=== PATIENT | male | born 1990 | race Caucasian/White ===

== ENCOUNTER 2025-04-30 18:11 | Emergency (ER) | payer BC ==
[~2025-04-30] VITALS: Ht 175.3 cm; Wt 118.2 kg
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
[2025-04-30 19:22] VITALS: BP 166/99; PULSE 118; RESP 20; TEMP 98.6; O2SAT 99
== END 2025-04-30 19:35 ==
LOC: ER 18:12
DX: Z00.00 Encounter for general adult medical examination without abnormal findings (principal); V89.2XXA Person injured in unspecified motor-vehicle accident, traffic, initial encounter; Y93.89 Activity, other specified; Y92.410 Unspecified street and highway as the place of occurrence of the external cause; Y99.8 Other external cause status
CPT/HCPCS: 99283